=== PATIENT | male | born 1960 | race African-American/Black ===

== ENCOUNTER 2018-08-09 10:43 | Emergency (ER) | payer SELFPAY ==
[2018-08-09] MEDS ORDERED: Sodium Chloride 0.9% 2.5 ML Syringe FLUSH PRN (10:45)
[2018-08-09] MEDS ORDERED: Sodium Chloride 0.9% 10 ML Syringe FLUSH PRN (10:45)
--- NOTE | 2018-08-09 10:58 | CT ---
EXAMINATION: Non contrast CT head. Coronal and sagittal reformats. HISTORY: Stroke FINDINGS: No evidence of intra or extra axial hemorrhage, mass, midline shift, hydrocephalus or edema. No hypoattenuation changes in the major vascular territories to suggest acute infarct. No abnormal intracranial calcifications are detected. No evidence of substantial vascular calcifications. Paranasal sinuses and mastoid air cells are well aerated without substantial findings. Orbits and globes are symmetric. Pituitary fossa appears unremarkable. Calvarium is intact. No evidence of skull fracture. IMPRESSION: No acute intracranial findings. Above findings were called to the ER at 10:55 AM.
--- NOTE | 2018-08-09 11:01 | EDM.PDOC ---
ED HPI GENERAL MEDICAL PROBLEM - General Chief Complaint: Neuro Symptoms/Deficits Stated Complaint: STROKE Time Seen by Provider: 08/09/18 10:44 Source of Information: Reports: Patient History Limitations: Reports: No Limitations - History of Present Illness INITIAL COMMENTS - FREE TEXT/NARRATIVE: History of present illness: []Patient presents with difficulty speaking and word finding that began approximately 45 minutes prior to arrival while he was at work. A stroke code was called and registration. Patient denies any medical problems. His symptoms while in the ED are waxing and waning. Review of systems: As per history of present illness and below otherwise all systems reviewed and negative. Past medical history: As per history of present illness and as reviewed below otherwise noncontributory. Surgical history: As per history of present illness and as reviewed below otherwise noncontributory. Social history: No reported history of drug or alcohol abuse. Family history: As per history of present illness and as reviewed below otherwise noncontributory. Physical exam: General: Well developed, well nourished in NAD HEENT: Atraumatic, normocephalic, pupils reactive, negative for conjunctival pallor or scleral icterus, mucous membranes moist, throat clear, neck supple, nontender, trachea midline. Lungs: Clear to auscultation, breath sounds equal bilaterally, chest nontender. Heart: S1S2, regular, negative for clicks, rubs, or JVD. Abdomen: NABS, Soft, nondistended, nontender. Negative for masses or hepatosplenomegaly. Negative for costovertebral tenderness. Pelvis: Stable nontender. Genitourinary: Deferred. Rectal: Deferred. Extremities: Atraumatic, negative for cords or calf pain. Neurovascular unremarkable. Neuro: Awake, alert, oriented. Cranial nerves II through XII unremarkable. Patient has a mild dysphagia that is waxing and waning while in the ED. Cerebellum unremarkable. Mild Left-sided weakness. Skin:warm and dry Diagnostics: CT head- negative at 10:55, EKG, CBC, chemistry, troponin, stroke protocol Therapeutics: Labetalol, TPA ED Course: Dr. Armstrong consulted at 11:20 she recommended TPA and consulting [facility] neurology since he would have to be transferred. Dr. Anderson at [facility] was consulted at 11:25 he also recommended labetalol and TPA as well as a CT angiogram of his head and neck he would like results prior to potential transfer. 12:08-TPA bolus given 12:38 patient showing signs of improvement with clear speech and less weakness on the left side, patient had mild bleeding from a tooth socket 13:28-Dr. Anderson accepts patient to [facility] after CT a of head and neck shows no thrombus Impression: CVA status post TPA Prescriptions: Plan: Transfer to [facility] by rotor, Dr. Anderson accepts Definitive disposition and diagnosis as appropriate pending reevaluation and review of above. - Related Data Allergies Allergy/AdvReac Type Severity Reaction Status Date / Time No Known Allergies Allergy Verified 08/09/18 10:47 Home Meds: Home Meds . [No Known Home Meds] 08/09/18 [History] Past Medical History HEENT History: Reports: None Cardiovascular History: Reports: None Respiratory History: Reports: None Gastrointestinal History: Reports: None Genitourinary History: Reports: None Musculoskeletal History: Reports: None Neurological History: Reports: None Psychiatric History: Reports: None Endocrine/Metabolic History: Reports: None Hematologic History: Reports: None Immunologic History: Reports: None Oncologic (Cancer) History: Reports: None Dermatologic History: Reports: None - Past Surgical History Head Surgeries/Procedures: Reports: None HEENT Surgical History: Reports: None Cardiovascular Surgical History: Reports: None Respiratory Surgical History: Reports: None GI Surgical History: Reports: None Male Surgical History: Reports: None Endocrine Surgical History: Reports: None Neurological Surgical History: Reports: None Musculoskeletal Surgical History: Reports: None Oncologic Surgical History: Reports: None Dermatological Surgical History: Reports: None Social & Family History - Family History Family Medical History: Noncontributory - Tobacco Use Smoking Status *Q: Never Smoker Second Hand Smoke Exposure: No - Caffeine Use Caffeine Use: Reports: None - Recreational Drug Use Recreational Drug Use: No ED ROS GENERAL - Review of Systems Review Of Systems: ROS reveals no pertinent complaints other than HPI. ED EXAM, NEURO - Physical Exam Exam: See Below (See history of present illness) Course - Vital Signs Last Recorded V/S: Last Vital Signs Temp 97.8 F 08/09/18 10:45 Pulse 60 08/09/18 11:21 Resp 16 08/09/18 11:21 BP 177/110 H 08/09/18 11:21 Pulse Ox 100 08/09/18 11:21 - Orders/Labs/Meds Orders: Active Orders 24 hr Category Date Time Status Assess Neurological Status [RC] ASDIRECTED Care 08/09/18 10:45 Active Bedrest [RC] ASDIRECTED Care 08/09/18 10:45 Active Cardiac Monitoring [RC] . DIRECTED Care 08/09/18 10:45 Active EKG Documentation Completion [RC] STAT Care 08/09/18 10:45 Active Height and Weight [RC] UPON Care 08/09/18 10:45 Active Initiate Acute Stroke Protocol [RC] STAT Care 08/09/18 10:45 Active NIH Stroke Scale [RC] ASDIRECTED Care 08/09/18 10:45 Active Nursing Bedside Swallow Screen [RC] ASDIRECTED Care 08/09/18 10:45 Active Oxygen Therapy [RC] ASDIRECTED Care 08/09/18 10:45 Active Stroke Education, General [RC] Click to Edit Care 08/09/18 10:45 Active Vital Signs [RC] Q15M Care 08/09/18 10:45 Active Sodium Chloride 0.9% [Saline Flush] Med 08/09/18 10:45 Active 10 ml FLUSH ASDIRECTED PRN Sodium Chloride 0.9% [Saline Flush] Med 08/09/18 10:45 Active 2.5 ml FLUSH ASDIRECTED PRN Peripheral IV Insertion Adult [OM.PC] Stat Oth 08/09/18 10:45 Ordered Peripheral IV Insertion Adult [OM.PC] Stat Oth 08/09/18 10:45 Ordered Medication Orders Sodium Chloride (Saline Flush) 10 ml FLUSH ASDIRECTED PRN PRN Reason: Keep Vein Open Sodium Chloride (Saline Flush) 2.5 ml FLUSH ASDIRECTED PRN PRN Reason: Keep Vein Open Labs: Laboratory Tests 08/09/18 08/09/18 08/09/18 Range/Units 10:41 10:41 10:41 WBC 7.50 (4.0-11.0) K/uL RBC 5.79 (4.50-5.90) M/uL Hgb 14.8 (13.0-17.0) g/dL Hct 45.0 (38.0-50.0) % MCV 77.7 L (80.0-98.0) fL MCH 25.6 L (27.0-32.0) pg MCHC 32.9 (31.0-37.0) g/dL RDW Std Deviation 42.1 (28.0-62.0) fl RDW Coeff of Anna 15 (11.0-15.0) % Plt Count 219 (150-400) K/uL MPV 10.20 (7.40-12.00) fL Neut % (Auto) 62.9 (48.0-80.0) % Lymph % (Auto) 19.7 (16.0-40.0) % Clark % (Auto) 12.3 (0.0-15.0) % Eos % (Auto) 4.8 (0.0-7.0) % Baso % (Auto) 0.3 (0.0-1.5) % Neut # (Auto) 4.7 (1.4-5.7) K/uL Lymph # (Auto) 1.5 (0.6-2.4) K/uL Clark # (Auto) 0.9 H (0.0-0.8) K/uL Eos # (Auto) 0.4 (0.0-0.7) K/uL Baso # (Auto) 0.0 (0.0-0.1) K/uL Nucleated RBC % 0.0 /100WBC Nucleated RBCs # 0 K/uL INR 1.00 APTT 29.5 (18.6-31.3) SEC Sodium 138 (136-148) mmol/L Potassium 4.0 (3.5-5.1) mmol/L Chloride 105 (98-107) mmol/L Carbon Dioxide 25.9 (21.0-32.0) mmol/L BUN 17 (7.0-18.0) mg/dL Creatinine 1.3 (0.8-1.3) mg/dL Est Cr Clr Drug Dosing 64.20 mL/min Estimated GFR (MDRD) 57.3 ml/min Glucose 109 H (74-106) mg/dL Calcium 9.3 (8.5-10.1) mg/dL Total Bilirubin 0.3 (0.2-1.0) mg/dL AST 21 (15-37) IU/L ALT 32 (14-63) IU/L Alkaline Phosphatase 66 (46-116) U/L Troponin I < 0.050 (0.000-0.056) ng/mL Total Protein 8.0 (6.4-8.2) g/dL Albumin 3.9 (3.4-5.0) g/dL Globulin 4.1 H (2.6-4.0) g/dL Albumin/Globulin Ratio 1.0 (0.9-1.6) TSH 3rd Generation 1.96 (0.36-3.74) uIU/mL Meds: Medications Generic Name Dose Route Start Last Admin Trade Name Freq PRN Reason Stop Dose Admin Sodium Chloride 10 ml 08/09/18 10:45 Saline Flush FLUSH ASDIRECTED PRN Keep Vein Open Sodium Chloride 2.5 ml 08/09/18 10:45 Saline Flush FLUSH ASDIRECTED PRN Keep Vein Open Discontinued Medications Generic Name Dose Route Start Last Admin Trade Name Freq PRN Reason Stop Dose Admin Alteplase, Recombinant Confirm 08/09/18 11:27 08/09/18 12:12 Activase Administered 08/09/18 11:28 Not Given Dose 100 mg .ROUTE .STK-MED ONE Alteplase, Recombinant 9 mg 08/09/18 12:02 08/09/18 12:05 Activase IVPUSH 08/09/18 12:03 9 mg .BOLUS ONE Administration Alteplase, Recombinant 81 mg/ 0 mls @ 0 mls/hr 08/09/18 12:10 08/09/18 13:17 Premix IV 08/09/18 12:11 Not Given .INFUSION ONE Alteplase, Recombinant 81 mg/ 0 mls @ 0 mls/hr 08/09/18 12:15 Premix IV 08/09/18 13:14 NOW ONE Alteplase, Recombinant 81 mg/ 81 mls @ 81 mls/hr 08/09/18 12:30 08/09/18 12: 18 Sterile Water IV 08/09/18 13:29 81 mls/hr NOW ONE Administration Iopamidol 100 ml 08/09/18 12:49 08/09/18 12:50 Isovue Multipack-370 (76%) IVPUSH 08/09/18 12:50 100 ml ONETIME STA Administration Labetalol HCl 20 mg 08/09/18 11:25 08/09/18 11:33 Normodyne IVPUSH 08/09/18 11:26 20 mg NOW ONE Administration Protocol Labetalol HCl Confirm 08/09/18 11:28 08/09/18 11:36 Normodyne Administered 08/09/18 11:29 Not Given Dose 20 mg .ROUTE .STK-MED ONE Labetalol HCl 20 mg 08/09/18 11:56 08/09/18 12:03 Normodyne IVPUSH 08/09/18 11:57 20 mg NOW ONE Administration Protocol Labetalol HCl Confirm 08/09/18 11:56 08/09/18 12:14 Normodyne Administered 08/09/18 11:57 Not Given Dose 20 mg .ROUTE .STK-MED ONE Labetalol HCl 10 mg 08/09/18 13:16 08/09/18 13:17 Normodyne IVPUSH 08/09/18 13:17 10 mg NOW ONE Administration Protocol Lorazepam 0.5 mg 08/09/18 12:19 Ativan IVPUSH 08/09/18 12:20 ONETIME ONE Departure - Departure Time of Disposition: 13:59 Disposition: DC/Tfer to Acute Hospital 02 Condition: Good Clinical Impression: CVA (cerebral vascular accident) Qualifiers: CVA mechanism: unspecified Qualified Code(s): I63.9 - Cerebral infarction, unspecified - Discharge Information *PRESCRIPTION DRUG MONITORING PROGRAM REVIEWED*: No *COPY OF PRESCRIPTION DRUG MONITORING REPORT IN PATIENT LAURA: No Referrals: PCP,Unknown [Primary Care Provider] - Forms: ED Department Discharge - My Orders Last 24 Hours: My Active Orders 08/09/18 10:45 Assess Neurological Status [RC] ASDIRECTED Bedrest [RC] ASDIRECTED Cardiac Monitoring [RC] . DIRECTED EKG Documentation Completion [RC] STAT Height and Weight [RC] UPON Initiate Acute Stroke Protocol [RC] STAT NIH Stroke Scale [RC] ASDIRECTED Nursing Bedside Swallow Screen [RC] ASDIRECTED Oxygen Therapy [RC] ASDIRECTED Stroke Education, General [RC] Click to Edit Vital Signs [RC] Q15M Sodium Chloride 0.9% [Saline Flush] 10 ml FLUSH ASDIRECTED PRN Sodium Chloride 0.9% [Saline Flush] 2.5 ml FLUSH ASDIRECTED PRN Peripheral IV Insertion Adult [OM.PC] Stat Peripheral IV Insertion Adult [OM.PC] Stat - Assessment/Plan Last 24 Hours: My Active Orders 08/09/18 10:45 Assess Neurological Status [RC] ASDIRECTED Bedrest [RC] ASDIRECTED Cardiac Monitoring [RC] . DIRECTED EKG Documentation Completion [RC] STAT Height and Weight [RC] UPON Initiate Acute Stroke Protocol [RC] STAT NIH Stroke Scale [RC] ASDIRECTED Nursing Bedside Swallow Screen [RC] ASDIRECTED Oxygen Therapy [RC] ASDIRECTED Stroke Education, General [RC] Click to Edit Vital Signs [RC] Q15M Sodium Chloride 0.9% [Saline Flush] 10 ml FLUSH ASDIRECTED PRN Sodium Chloride 0.9% [Saline Flush] 2.5 ml FLUSH ASDIRECTED PRN Peripheral IV Insertion Adult [OM.PC] Stat Peripheral IV Insertion Adult [OM.PC] Stat
[2018-08-09] MEDS ORDERED: Labetalol 20 MG/4 ML Syringe IVPUSH ONE ×3 (11:25→13:16)
[2018-08-09 11:28] LABS: CHLORIDE,CL 105 mmol/L (98-107); SODIUM,NA 138 mmol/L (136-148)
[2018-08-09] MEDS ORDERED: Labetalol 20 MG/4 ML Syringe ONE ×2 (11:28→11:56)
[2018-08-09] MEDS ORDERED: Alteplase 90 MG in Premix Bag 1 BAG IV ONE (12:01)
[2018-08-09] MEDS ORDERED: Alteplase 81 MG in Premix Bag 1 BAG IV ONE ×3 (12:05→12:15)
[2018-08-09] MEDS: ALTEPLASE IV ONE ×2 (12:18→14:02)
[2018-08-09] MEDS: STERILE IV ONE ×2 (12:18→14:02)
[2018-08-09] MEDS: WATER FOR INJECTION IV ONE ×2 (12:18→14:02)
[2018-08-09] MEDS ORDERED: LORazepam 2 MG/ML SDV IVPUSH ONE (12:19)
[2018-08-09] MEDS ORDERED: Iopamidol 755 MG/ML 500 ML Multipack Bottle IVPUSH STA (12:49)
--- NOTE | 2018-08-09 13:19 | CT ---
EXAMINATION: CTA head and neck HISTORY: CVA COMPARISON: Noncontrast head CT from the same day. TECHNIQUE: Axial CT images obtained through the head and neck following the administration of 100 mL of Isovue-370 in the left antecubital fossa. Coronal and sagittal reconstructions obtained. Suboptimal bolus timing is noted. FINDINGS: CTA neck: Lung apices are clear. Three-vessel origin on the aortic arch. The common carotid arteries are patent. Atheromatous changes are noted at the bulbs and within the proximal internal carotid arteries bilaterally. This is minimally noted on the right and there is approximately 45% stenosis of the proximal left internal carotid artery using NASCET criteria. Vertebral arteries appear roughly codominant. Paravertebral soft tissues within the neck appear unremarkable. On pathologically enlarged cervical chain lymph nodes. CTA head: The distal internal carotid arteries grossly patent. Middle, anterior, and posterior cerebral arteries appear patent. Evidence of a significant region of stenosis or aneurysm. No intracranial mass, mass effect, or midline shift. Globes are symmetric. Paranasal sinuses and mastoid air cells are clear. IMPRESSION: 1. Approximately 45% stenosis of the proximal left internal carotid artery. 2. No significant stenosis noted within the right internal carotid artery. 3. Grossly unremarkable intracranial arterial circulation.
== END 2018-08-09 14:15 ==
LOC: MW.ED 10:43
DX: I63.9 Cerebral infarction, unspecified (principal); G81.94 Hemiplegia, unspecified affecting left nondominant side; R13.10 Dysphagia, unspecified
CPT/HCPCS: 36415; 51702; 70450; 70496; 70498; 80053; 84443; 84484; 85025; 85610; 85730; 93005; 96374; 96375; 96376; 99291; 99292; J2997; J3490; Q9967